=== PATIENT | female | born 2000 | race African-American/Black ===

== ENCOUNTER 2023-10-01 05:35 | Inpatient (IN) | payer MEDICAID, OTHER ==
[2023-10-01] MEDS ORDERED: Acetaminophen 325 MG Tab PO PRN (06:56)
[2023-10-01] MEDS ORDERED: Misoprostol 400 MCG (4 X 100 MCG TAB) RECTAL PRN (06:56)
[2023-10-01] MEDS ORDERED: Sodium Chloride 0.9% 10 ML Syringe FLUSH PRN (06:56)
[2023-10-01] MEDS ORDERED: Tranexamic Acid 1,000 MG in Sodium Chloride 0.9% 100 ML IV PRN (06:56)
[2023-10-01] MEDS ORDERED: Methylergonovine 0.2 MG/1 ML Amp IM PRN (06:56)
[2023-10-01] MEDS ORDERED: Carboprost Tromethamine 250 MCG/1 ML Amp IM PRN (06:56)
[2023-10-01 07:15] LABS: HEMATOCRIT 39.1 % (37.0-47.0); HEMOGLOBIN 13.4 g/dL (12.0-16.0); MEAN CORPUSCULAR HEMOGLOBIN 30.6 pg (27.0-34.0); MEAN CORPUSCULAR HGB CONC 34.3 g/dL (33.0-35.0); MEAN CORPUSCULAR VOLUME 89.3 fL (80-100); RED BLOOD CELL COUNT 4.38 10^6/uL (4.2-5.4); WHITE BLOOD CELL COUNT,WBC 11.6 10^3/uL (5.0-10.0)
[2023-10-01] MEDS: Oxytocin/Normal Saline 30 UNIT/500 ML BAG IV SCH (07:44)
[2023-10-01] MEDS: Lactated Ringers 1,000 ML IV SCH (07:49)
[2023-10-01 08:59] LABS: CREATININE 0.65 mg/dL (0.55-1.02); EST CRCL DRUG DOSING (CG) 123.86 mL/min; URIC ACID 5.8 mg/dL (2.6-6.0)
[2023-10-01 09:50] LABS: APPEARANCE,URINE CLEAR (CLEAR); BILIRUBIN,URINE NEGATIVE (NEGATIVE); COLOR,URINE YELLOW (YELLOW); GLUCOSE,URINE NEGATIVE (NEGATIVE); KETONES,URINE NEGATIVE (NEGATIVE); LEUKOCYTE ESTERASE,URINE NEGATIVE (NEGATIVE); NITRITE,URINE NEGATIVE (NEGATIVE); OCCULT BLOOD,URINE MODERATE (NEGATIVE); PROTEIN,URINE NEGATIVE (NEGATIVE); UROBILINOGEN,URINE 0.2 mg/dL (0.2-1.0)
[2023-10-01 10:04] LABS: CREATININE,URINE RAND 73.96 mg/dL (No establ ref range); PROTEIN CREATININE RATIO,URINE 136.6 mg/g (<150.0); PROTEIN,URINE RANDOM 10.1 mg/dL (0.0-11.9)
[2023-10-01] MEDS ORDERED: fentaNYL 100 MCG/2 ML SDV ONE ×2 (10:18→15:08)
[2023-10-01] MEDS ORDERED: Bupivacaine 0.25% 10 ML SDV ONE ×2 (10:18→15:08)
[2023-10-01] MEDS: fentaNYL 100 MCG/2 ML SDV IVPUSH ONE (10:48)
[2023-10-01] MEDS: Ondansetron 4 MG/2 ML SDV IVPUSH PRN (10:53)
[2023-10-01] MEDS: Lactated Ringers 1,000 ML IV ONE (14:50)
[2023-10-01] MEDS ORDERED: Phenylephrine HCl In 0.9% NaCl 1 MG/10 ML Syringe IVPUSH PRN (15:31)
[2023-10-01] MEDS ORDERED: ePHEDrine 50 MG/ML SDV IVPUSH PRN (15:31)
[2023-10-01] MEDS ORDERED: Ropivacaine 200 MG in Premix Bag 1 BAG EPIDUR SCH (15:45)
[2023-10-02 06:43] LABS: HEMATOCRIT 36.9 % (37.0-47.0); HEMOGLOBIN 12.3 g/dL (12.0-16.0); MEAN CORPUSCULAR HGB CONC 33.3 g/dL (33.0-35.0); RED BLOOD CELL COUNT 4.1 10^6/uL (4.2-5.4); WHITE BLOOD CELL COUNT,WBC 15.9 10^3/uL (5.0-10.0)
[2023-10-02 06:48] LABS: APPEARANCE,URINE SLIGHTLY CLOUDY (CLEAR); BILIRUBIN,URINE NEGATIVE (NEGATIVE); COLOR,URINE YELLOW (YELLOW); GLUCOSE,URINE NEGATIVE (NEGATIVE); KETONES,URINE NEGATIVE (NEGATIVE); LEUKOCYTE ESTERASE,URINE SMALL (NEGATIVE); NITRITE,URINE NEGATIVE (NEGATIVE); OCCULT BLOOD,URINE LARGE (NEGATIVE); PH,URINE 5.5 (5.0-9.0); PROTEIN,URINE >=300 (NEGATIVE); UROBILINOGEN,URINE 0.2 mg/dL (0.2-1.0)
[2023-10-02 06:56] LABS: CREATININE 1.37 mg/dL (0.55-1.02); EST CRCL DRUG DOSING (CG) 58.76 mL/min; URIC ACID 5.8 mg/dL (2.6-6.0)
[2023-10-02 07:01] LABS: CREATININE,URINE RAND 114.45 mg/dL (No establ ref range)
[2023-10-02 07:02] LABS: PROTEIN CREATININE RATIO,URINE 3015.3 mg/g (<150.0); PROTEIN,URINE RANDOM 345.1 mg/dL (0.0-11.9)
[2023-10-02] MEDS ORDERED: diphenhydrAMINE 50 MG/ML SDV IVPUSH PRN (07:09)
[2023-10-02] MEDS ORDERED: ePHEDrine 50 MG/ML SDV IVPUSH PRN (07:09)
[2023-10-02] MEDS ORDERED: Witch Hazel Medicated Pads 100/Jar TOP PRN (07:09)
[2023-10-02] MEDS ORDERED: Ibuprofen 800 MG Tab PO PRN (07:09)
[2023-10-02] MEDS ORDERED: Naloxone 2 MG/2 ML Syringe IVPUSH PRN (07:09)
[2023-10-02] MEDS ORDERED: Calcium Gluconate 10% 1 GM/10 ML SDV IVPUSH PRN (07:14)
[2023-10-02] MEDS ORDERED: Lactated Ringers 1,000 ML IV SCH (07:15)
[2023-10-02] MEDS: Magnesium Sulfate/Water 4 GM in Premix Bag 1 BAG IV ONE (07:22)
[2023-10-02] MEDS ORDERED: Lidocaine 1% with EPINEPHrine 1:100,000 20 ML MDV ONE (07:43)
[2023-10-02] MEDS ORDERED: Tranexamic Acid 1,000 MG/10 ML Vial ONE (07:56)
[2023-10-02] MEDS: Magnesium Sulfate/Water 20 GM in Premix Bag 1 BAG IV SCH (08:50)
[2023-10-02] MEDS ORDERED: ceFAZolin 2 GM Vial ONE (09:06)
[2023-10-02] MEDS ORDERED: Oxytocin 10 Units/1 ML SDV ONE (09:06)
[2023-10-02] MEDS ORDERED: Ondansetron 4 MG/2 ML SDV ONE (09:06)
[2023-10-02] MEDS ORDERED: Dexamethasone 4 MG/ML SDV ONE (09:06)
[2023-10-02] MEDS ORDERED: Lidocaine 2% with EPINEPHrine 1:200,000 20 ML SDV ONE (09:06)
[2023-10-02] MEDS: fentaNYL 100 MCG/2 ML SDV ONE (10:27)
[2023-10-02] MEDS: Lidocaine 1% 30 ML SDV INJECT ONE (10:29)
[2023-10-02] MEDS: Labetalol 20 MG/4 ML Syringe ONE (10:29)
[2023-10-02] MEDS: Simethicone 80 MG Tab.Chew PO SCH (10:30)
[2023-10-02] MEDS: Prenatal Multivitamin with Calcium/Folic Acid/Iron Tab PO SCH (10:30)
[2023-10-02] MEDS: Acetaminophen/oxyCODONE 325-5 MG Tab PO PRN (11:59)
[2023-10-02] MEDS: Magnesium Sulfate/Water 100 ML ONE (18:33)
[2023-10-02 18:58] LABS: HEMATOCRIT 36.4 % (37.0-47.0); HEMOGLOBIN 12.4 g/dL (12.0-16.0); MEAN CORPUSCULAR HEMOGLOBIN 30.5 pg (27.0-34.0); MEAN CORPUSCULAR HGB CONC 34.1 g/dL (33.0-35.0); MEAN CORPUSCULAR VOLUME 89.4 fL (80-100); RED BLOOD CELL COUNT 4.07 10^6/uL (4.2-5.4); WHITE BLOOD CELL COUNT,WBC 19.6 10^3/uL (5.0-10.0)
[2023-10-02 19:18] LABS: ALBUMIN 1.9 g/dL (3.4-5.0); ANION GAP 14.6 mEq/L (7-13); BILIRUBIN TOTAL 0.5 mg/dL (0.2-1.0); BUN/CREATININE RATIO 5.6 (No establ ref range); CALCIUM 9.2 mg/dL (8.5-10.1); CREATININE 1.08 mg/dL (0.55-1.02); EST CRCL DRUG DOSING (CG) 74.54 mL/min; POTASSIUM,K 4.6 mmol/L (3.5-5.1); PROTEIN TOTAL,TP 5.8 g/dL (6.4-8.2)
[2023-10-02 19:20] LABS: A/G RATIO 0.49
[2023-10-02 19:22] LABS: MAGNESIUM 5.6 mg/dL (1.8-2.4)
[2023-10-03 06:35] LABS: HEMOGLOBIN 11.2 g/dL (12.0-16.0); MEAN CORPUSCULAR HEMOGLOBIN 30.4 pg (27.0-34.0); MEAN CORPUSCULAR HGB CONC 33.9 g/dL (33.0-35.0); MEAN CORPUSCULAR VOLUME 89.4 fL (80-100); RED BLOOD CELL COUNT 3.69 10^6/uL (4.2-5.4)
[2023-10-03 07:03] LABS: ALBUMIN 1.9 g/dL (3.4-5.0); BILIRUBIN TOTAL 0.4 mg/dL (0.2-1.0); CALCIUM 8.8 mg/dL (8.5-10.1); CREATININE 0.86 mg/dL (0.55-1.02); EST CRCL DRUG DOSING (CG) 93.61 mL/min
[2023-10-03 07:05] LABS: A/G RATIO 0.61
[2023-10-03] MEDS: Ketorolac 30 MG/ML SDV IVPUSH SCH (08:53)
[2023-10-03] MEDS: Furosemide 20 MG Tab PO SCH (09:03)
[2023-10-03] MEDS: Docusate Sodium 100 MG Cap PO PRN (09:03)
[2023-10-03] MEDS: Acetaminophen/oxyCODONE 325-5 MG Tab PO PRN (15:30)
[2023-10-04] MEDS: Ibuprofen 800 MG Tab PO PRN (07:40)
[2023-10-04] MEDS: Ondansetron 4 MG Tab.DIS PO ONE (12:20)
== END 2023-10-04 12:15 | disposition home or self-care (01) | DRG 788 ==
LOC: DL.OBCHECK 05:35 → DL.OB 06:36 → OBSVTOIN 08:06
PROVIDERS: ADMIT Family Medicine; ATTEND Family Medicine
PROC: 10H07YZ Insertion of Other Device into Products of Conception, Via Natural or Artificial Opening (ICD-10-PCS; 2023-10-02)
PROC: 10D00Z1 Extraction of Products of Conception, Low, Open Approach (ICD-10-PCS; principal; 2023-10-02 07:30)
DX: O13.4 Gestational [pregnancy-induced] hypertension without significant proteinuria, complicating childbirth (principal); O14.14 Severe pre-eclampsia complicating childbirth; Z3A.38 38 weeks gestation of pregnancy; Z37.0 Single live birth; O62.1 Secondary uterine inertia; O69.81X0 Labor and delivery complicated by cord around neck, without compression, not applicable or unspecified
CPT/HCPCS: 01967; 01968; 36415; 51702; 80053; 81003; 82565; 82570; 83615; 83735; 84112; 84156; 84450; 84460; 84520; 84550; 85027; 86850; 86900; 86901; 94010; A9270-GY; J2405; J2590; J3010; J3475; J7120